=== PATIENT | male | born 1950 | race American Indian/Alaskan Native ===

== ENCOUNTER 2016-06-07 14:43 | Inpatient (IN) | payer MEDICARE, OTHER ==
[2016-06-07] MEDS ORDERED: NACL 0.9% 500 ML 500 ML IV ONE (15:27)
[2016-06-07] MEDS ORDERED: TYLENOL PO ONE ×2 (15:29→19:56)
[2016-06-07 16:12] LABS: Basophils % (Auto) 0.6 % (0.0-1.8); Hematocrit 46.2 % (35.5-45.6); Hemoglobin 15.4 gm/dl (11.8-15.2); Mean Corpuscular HGB Conc 33 % (32-34); Mean Corpuscular Hemoglobin 30 pg (28-32); Mean Corpuscular Volume 90 fl (84-94); Platelet Count 176 K/mm3 (140-440); Red Blood Count 5.13 M/mm3 (3.65-5.03); Red Cell Distribution Width 14.7 % (13.2-15.2); White Blood Count 7.5 K/mm3 (4.5-11.0)
--- NOTE | 2016-06-07 16:30 | XRay Report ---
Single view chest: History: Possible sepsis. Findings: Normal cardiomediastinal silhouette. Trachea is midline. Infiltrate left and right lower lobe suggestive of pneumonitis. Normal CP angles. Impression: Bilateral lower lobe infiltrates. The
[2016-06-07 16:40] LABS: INR 1.11 (0.87-1.13)
[2016-06-07 16:46] LABS: Alanine Aminotransferase 15 units/L (7-56); Albumin/Globulin Ratio 1.1 %; Alkaline Phosphatase 90 units/L (35-129); Anion Gap 19 mmol/L; Bilirubin,Total 0.5 mg/dL (0.1-1.2); Blood Urea Nitrogen 9 mg/dL (9-20); Calcium 9.2 mg/dL (8.4-10.2); Carbon Dioxide 24 mmol/L (22-30); Chloride 96.6 mmol/L (98-107); Glucose 103 mg/dL (75-100); Potassium 4.1 mmol/L (3.6-5.0); Sodium 135 mmol/L (137-145); Total Protein 7.5 g/dL (6.3-8.2)
[2016-06-07 17:24] LABS: Creatine Kinase 106 units/L (55-170)
[2016-06-07 17:27] LABS: Creatine Kinase MB < 1.0 ng/mL (0.0-4.0)
--- NOTE | 2016-06-07 19:55 | Emergency Department Report ---
ED General Adult HPI - General Chief complaint: Chest Pain Stated complaint: CHEST PAIN Time Seen by Provider: 06/07/16 19:50 Source: family Mode of arrival: Wheelchair Limitations: Physical Limitation - History of Present Illness Initial comments: This is a 65-year-old gentleman who presents to the ED initially due to confusion. His stated that he took Unisom pill last night. She indicates is the first time that she can recall that he ever took a Unisom. She states that did help himself sleep more fitfully. He did not wake up until approximately 11 AM today. She indicates that when he awoke he seemed inappropriate. He had difficulty with his speech as well as comprehension. He also had some increased left-sided weakness. He does have chronic left sided weakness from prior stroke. She indicates that it seemed much worse today however. She ultimately comes for him to consent to coming to the ED for evaluation. He did indicate to his life as well as having some substernal chest pain as well. She denies any history of him having any cardiac disease however. Patient was initially triaged. He was noted to be febrile in triage as well. While in triage patient had a syncopal episode. He was immediately brought back to the ED for further evaluation. Upon arriving back in the ED patient had awoken and had no specific complaints but for the same complaints of brought him to the ED in the first place. He states he recalls in the waiting room having a bloody nose and that he did not have any recollection of the syncopal episode or being brought back to the ED. Severity scale (0 -10): 0 Associated Symptoms: cough, fever/chills, syncope. denies: headaches, loss of appetite, malaise, nausea/vomiting, shortness of breath, weakness Treatments Prior to Arrival: none - Related Data Allergies Allergy/AdvReac Type Severity Reaction Status Date / Time No Known Allergies Allergy Unverified 06/07/16 15:19 ED Review of Systems ROS: Stated complaint: CHEST PAIN Other details as noted in HPI Comment: All other systems reviewed and negative Constitutional: denies: chills, fever Eyes: denies: eye pain, eye discharge, vision change ENT: denies: ear pain, throat pain Respiratory: cough. denies: shortness of breath, wheezing Cardiovascular: chest pain. denies: palpitations Endocrine: no symptoms reported Gastrointestinal: denies: abdominal pain, nausea, diarrhea Genitourinary: denies: urgency, dysuria Musculoskeletal: denies: back pain, joint swelling, arthralgia Skin: denies: rash, lesions Neurological: denies: headache, weakness, paresthesias Psychiatric: denies: anxiety, depression Hematological/Lymphatic: denies: easy bleeding, easy bruising ED Past Medical Hx - Past Medical History Hx Hypertension: Yes Hx CVA: Yes Hx Psychiatric Treatment: Yes (SCHIZOPHRENIA) Additional medical history: GLAUCOMA. HIGH CHOLESTEROL - Surgical History Additional Surgical History: HEMORRHOIDECTOMY - Social History Smoking Status: Former Smoker Substance Use Type: None ED Physical Exam - General Limitations: Physical Limitation, Other (speech impediment) General appearance: alert, in no apparent distress - Head Head exam: Present: atraumatic, normocephalic - Eye Eye exam: Present: normal appearance, EOMI. Absent: scleral icterus - ENT ENT exam: Present: normal orophraynx, mucous membranes moist, other (L facial droop. Dried blood on R nares) - Neck Neck exam: Present: normal inspection - Respiratory Respiratory exam: Present: normal lung sounds bilaterally, rales (mild bibasilarly). Absent: respiratory distress - Cardiovascular Cardiovascular Exam: Present: regular rate, normal rhythm. Absent: systolic murmur, diastolic murmur, rubs, gallop - GI/Abdominal GI/Abdominal exam: Present: soft, normal bowel sounds. Absent: tenderness, guarding - Rectal Rectal exam: Present: deferred - Extremities Exam Extremities exam: Present: other (equal distal pedal pulses bilaterally.). Absent: tenderness, pedal edema, calf tenderness - Back Exam Back exam: Present: normal inspection. Absent: tenderness, CVA tenderness (R), CVA tenderness (L) - Neurological Exam Neurological exam: Present: alert, oriented X3, other - Psychiatric Psychiatric exam: Present: normal affect, normal mood - Skin Skin exam: Present: warm, dry, intact, normal color. Absent: rash ED Course Vital Signs 06/07/16 06/07/16 06/07/16 15:08 15:35 19:36 Temperature 101.4 F H Pulse Rate 122 H 90 Respiratory 24 21 18 Rate Blood Pressure 120/78 O2 Sat by Pulse 98 Oximetry 04/03/17 04/03/17 04/03/17 19:40 19:48 19:52 Temperature Pulse Rate 94 H 101 H Respiratory 22 20 15 Rate Blood Pressure 97/59 O2 Sat by Pulse 98 Oximetry 06/07/16 06/07/16 06/07/16 20:25 20:30 20:41 Temperature Pulse Rate 101 H 100 H 103 H Respiratory 20 15 Rate Blood Pressure 106/71 106/71 O2 Sat by Pulse Oximetry 06/07/16 20:52 Temperature Pulse Rate 102 H Respiratory Rate Blood Pressure O2 Sat by Pulse Oximetry - Reevaluation(s) Reevaluation #1: 06/07/16 19:51 ECG in 194 with sinus rhythm at 95 bpm noted to have first-degree block with a IN of 222 ms. Does have right bundle-branch block as well. Right axis is noted. Nonspecific ST segment changes noted. No STEMI. Reevaluation #2: 06/07/16 20:02 Labs done through triage are noted. Chest x-ray is noted as well. It does demonstrate concern for possible pneumonitis versus infantile infiltrate with pneumonia. I suspect the latter given the fever. He specifically does not have a complaint for pain upon my arrival in the room. She denies any chest pain currently. His ECG is nonspecific. Initial troponin done through triage is negative as well. Patient did have blood cultures drawn through triage. His initial lactate is noted as well. It is interesting to me that his repeat lactate improved so significantly without any intervention including IV fluids. Patient was just sitting waiting in my triage time. I will institute antibiotics for probable pneumonia. Patient is noted to be slightly hypotensive here as well. I suspect this is related to his sepsis. There is question of possible alternative etiology given his syncopal episode in the waiting room. He was just sitting down at the time. He has no recollection of it. It is possible it could be cardiac in nature. He is completely resolved from that episode of this time. Does not have complaints. It is also possible to be a vasovagal. He just suffered what he recalls as a nosebleed from the right nares. He indicated that that was the last member he recalled. I will obtain CT brain due to his 's report of him having increased weakness. I also feel this is appropriate given his syncopal episode. Reevaluation #3: 06/07/16 20:35 CT head demonstrates no acute pathology. sequelae of large right MCA territory prior ischemic stroke. As read by the radiologist. ED Medical Decision Making - Lab Data Result diagrams: 06/07/16 15:44 06/07/16 15:44 - Radiology Data Radiology results: report reviewed, image reviewed Bilateral lower lobe infiltrates. Normal cardiac silhouette. Critical care attestation.: If time is entered above; I have spent that time in minutes in the direct care of this critically ill patient, excluding procedure time. ED Disposition Clinical Impression: Severe sepsis Pneumonia Qualifiers: Aspiration pneumonia type: unspecified Laterality: bilateral Lung location: lower lobe of lung Syncope Qualifiers: Syncope type: unspecified Qualified Code(s): R55 - Syncope and collapse Disposition: OP ADMITTED IP TO THIS HOSP Is pt being admited?: No Does the pt Need Aspirin: No Condition: Stable Instructions: Syncope (ED), Bacterial Pneumonia (ED) Referrals: PRIMARY CARE, [Primary Care Provider] - 3-5 Days Time of Disposition: 20:38
[2016-06-07] MEDS ORDERED: XYLOCAINE 1% MPF 5 mL INFILTRATI ONE ×2 (19:56→21:58)
[2016-06-07] MEDS ORDERED: ZITHROMAX 500 MG in NACL 0.9% 250ML 250 ML IV ONE (19:56)
[2016-06-07] MEDS ORDERED: NACL 0.9% 1000 ML 2,000 ML IV ONE (19:56)
[2016-06-07] MEDS ORDERED: ROCEPHIN 1,000 MG in NACL 0.9% 50 ML IV NR (20:00)
--- NOTE | 2016-06-07 20:29 | Cat Scan Report ---
FINAL REPORT EXAM: CT HEAD/BRAIN WO CON HISTORY: syncope TECHNIQUE: CT imaging is acquired through the brain without contrast. Transaxial reformations are provided. PRIORS: None. FINDINGS: Extensive right MCA territory encephalomalacia from prior infarct. Resultant ex vacuo dilatation of the right lateral ventricle. Ventricles and CSF spaces are otherwise mildly proportionately enlarged, consistent with parenchymal atrophy. Scattered deep and subcortical white matter hypodense foci are confluent in some areas and are compatible with microvascular angiopathy. No acute intracranial hemorrhage or mass effect. Calvarium and superficial scalp are intact. Partially visualized paranasal sinuses are clear. Mastoids are clear. IMPRESSION: No acute intracranial abnormality. There are chronic sequela of large right MCA territory infarct as well as atrophy and microvascular angiopathy.
[2016-06-07] MEDS ORDERED: ROCEPHIN/NS 1 GM/50 ML 1 GM/50 ML BAG IV ONE (20:33)
--- NOTE | 2016-06-07 20:45 | Admit Criteria Form ---
Admission Criteria Documentation: SEVERE SEPSIS Clinical Indications for Admission to Inpatient Care (Place 'X' for any and all applicable criteria): Hospital admission is needed for appropriate care of the patient because of ANY ONE of the following: [X]I. Hemodynamic instability indicated by ANY ONE of the following(1)(2)(3)( 4)(5): [X]a. Vital sign abnormality not readily corrected by appropriate treatment within 12 to 24 hours indicated by ANY ONE of the following: [X]i) Tachycardia that persists despite appropriate treatment []ii) Hypotension that persists despite appropriate treatment []iii) Orthostatic vital sign changes that persist despite appropriate treatment [X]b. Vital sign abnormality that is severe indicated by ANY ONE of the following: [X]i. Inadequate perfusion indicated by ANY ONE of the following: [X]1) Lactic acidosis (greater than 2 mmol/L) []2) New abnormal capillary refill (greater than 3 seconds) []3) Reduced urine output []4) New altered mental status []5) Myocardial Ischemia []ii. Mean arterial pressure [A] less than 60 mm Hg []iii. Mean arterial pressure[A] less than 70 mm Hg after 30 minutes of appropriate treatment (eg, fluid resuscitation) []iv. Sustained heart rate greater than 120 beats per minute in adult []v. IV inotropic or vasopressor medication required to maintain adequate blood pressure or perfusion []II. Systemic or infectious condition causing severe symptoms or findings not responsive to emergency or observation care treatment (as appropriate) indicated by ANY ONE of the following: []a. Cardiac arrhythmias of immediate concern(1)(2)(3) []b. Severe endocrine disorder (eg, thyrotoxicosis, adrenal insufficiency)(4)(5) []c. Seizures (eg, new or recurrent)(6) []d. New-onset end organ failure or dysfunction as indicated by ANY ONE of the following: []i. Acute unexplained hypoxemia (eg, not from lung infection or chronic disease)(7)(8)(9) []ii. Acute renal failure as indicated by new onset of ANY ONE of the following(10)(11)(12)(13)(14): []1) 3-fold rise in serum creatinine from baseline []2) Serum creatinine greater than 4 mg/dL (354 micromoles/L) with acute rise greater than 0.5 mg/dL (44.2 micromoles/L) []3) Reduction of more than 75% in estimated glomerular filtration rate from baseline. []4) Estimated glomerular filtration rate less than 35 mL/min/1.73m2 ( 0.59 mL/sec/1.73m2) in child younger than 18 years. []5) Cessation of urine output indicated by ALL of the following: []A. Adequate volume status []B. Inadequate urine output as indicated by ANY ONE of the following: []a. Urine output less than 0.3 mL/kg/hr for 24 hours []b. Anuria (urine output less than 0.1 mL/kg/hr) for 12 hours []iii. Acute mental status changes(15) []iv. Acute hepatic failure (eg, plasma bilirubin greater than 4 mg/ dL (68 micromoles/L), new INR greater than 2.0)(16)(17) []e. Unmanageable nausea and vomiting(18) []f. New-onset or uncontrolled central diabetes insipidus(19)(20) []g. Clinically significant dehydration(18)(21) []h. Hypoglycemia(22) []i. Acidosis (pH less than 7.35) or alkalosis (pH greater than 7.45)( 22)(23) []j. Toxic drug level that indicates need for specific monitoring or treatment(24)(25) []k. Severe electrolyte abnormalities indicated by ALL of the following( 1)(2)(3): []i. Electrolytes and associated findings are not as expected for patient baseline or acceptable treatment effects. []ii. Severe abnormalities indicated by ANY ONE of the following: []1) Sodium less than 130 mEq/L (mmol/L) (new) []2) Sodium less than 135 mEq/L (mmol/L) with ANY ONE of the following: []A. Uncorrectable (to near normal or chronic baseline) after trial of outpatient and emergency treatment []B. Altered mental status []C. Seizures []D. Severe medical etiology requiring inpatient management (eg , heart failure, hypovolemia) []3) Sodium greater than 155 mEq/L (mmol/L) []4) Sodium greater than 150 mEq/L (mmol/L) with ANY ONE of the following: []A. Uncorrectable (to near normal or chronic baseline) with outpatient and emergency treatment []B. Altered mental status []C. Seizures []D. Severe medical etiology (eg, hypovolemia, diabetes insipidus) []5) Potassium less than 2.5 mEq/L (mmol/L) despite outpatient and emergency treatment []6) Potassium less than 3 mEq/L (mmol/L) with ANY ONE of the following : []A. Weakness []B. Cardiac abnormality (eg, arrhythmia, conduction disturbance ) []C. Cardiac ischemia []D. Ileus []E. Ongoing medical cause requiring inpatient management (eg, acute renal wasting or SIADH) []F. Other severe symptoms []7) Potassium greater than 6.5 mEq/L (mmol/L) []8) Potassium greater than 5 mEq/L (mmol/L) with ANY ONE of the following: []A. Uncorrectable (to near normal or chronic baseline) with outpatient and emergency treatment []B. Severe ECG findings[A] []C. Acute worsening of renal failure (creatinine greater than 2.5 mg/dL (221 micromoles/L) or significant elevation for age and size) []D. Severe weakness []E. Severe medical etiology (eg, hemolysis, infection, drug overdose) []9) Calcium less than 7 mg/dL (1.75 mmol/L) despite outpatient and emergency treatment(5) []10) Calcium less than 8 mg/dL (2 mmol/L) with significant symptoms or findings (eg, altered mental status, muscle spasms, seizures, breathing difficulty, cardiac abnormality (eg, arrhythmia or conduction disturbance))(5) []11) Calcium greater than 14 mg/dL (3.5 mmol/L)(5) []12) Calcium greater than 12 mg/dL (3 mmol/L) with ANY ONE of the following(5): []A. Uncorrectable (to near normal or chronic baseline) with outpatient and emergency treatment []B. Significant dehydration or hypovolemia as indicated by ALL of the following(3)(6)(7): []a. Not resolved with initial treatments []b. Clinically significant dehydration as indicated by ANY ONE of the following: [](1) Vomiting refractory to outpatient treatment (ie, precluding oral rehydration) [](2) Inability to drink [](3) Hypernatremia or other electrolyte abnormality unable to be corrected with outpatient and emergency treatment [](4) Failure to remain hydrated with outpatient therapy [](5) Reduced urine output [](6) Hypotension [](7) Serious cause for dehydration requiring acute hospitalization ( eg, bowel obstruction, increased intracranial pressure, infectious cause) [](8) Child with ANY ONE of the following(8): [](i) Severe abdominal tenderness [](ii) Adequate care not available at home [](iii) Severe dehydration (greater than 9% loss of body weight) []C. Significant symptoms or findings (eg, altered mental status , cardiac abnormality (eg, arrhythmia, conduction disturbance), malignant etiology requiring inpatient treatment) []13) Phosphorus less than 1 mg/dL (0.32 mmol/L) []14) Phosphorus less than 1.5 mg/dL (0.48 mmol/L) with ANY ONE of the following: []A. Patient unresponsive to outpatient and emergency treatment []B. Significant symptoms or findings (eg, weakness, altered mental status, breathing difficulty, seizures, rhabdomyolysis) []15) Phosphorus greater than 10 mg/dL (3.2 mmol/L) []16) Phosphorus greater than 4.5 mg/dL (1.45 mmol/L) (new) with ANY ONE of the following: []A. Severe medical etiology (eg, crush injury, acute renal failure) []B. Associated hypocalcemia with significant findings (eg, neurologic symptoms, altered mental status, muscle spasms, seizures, breathing difficulty, cardiac abnormality (eg, arrhythmia, conduction disturbance)) []16) Magnesium less than 1 mg/dL (0.41 mmol/L) []17) Magnesium less than 1.5 mg/dL (0.62 mmol/L) with ANY ONE of the following: []A. Patient unresponsive to outpatient and emergency treatment []B. Associated hypocalcemia with significant findings (eg, altered mental status, muscle spasms, seizures, breathing difficulty, cardiac abnormality (eg, arrhythmia, conduction disturbance)) []C. Associated hypokalemia (potassium less than 3 mEq/L (mmol/L )) with risk of arrhythmia []18) Magnesium greater than 4 mEq/L (2 mmol/L) []19) Magnesium greater than 2.5 mEq/L (1.25 mmol/L) with significant symptoms or findings (eg, weakness, altered mental status, cardiac abnormality (eg, arrhythmia, conduction disturbance), breathing difficulty, severe medical etiology (eg, renal failure, hypovolemia)) []20) Uric acid greater than 20 mg/dL (1190 micromoles/L)(9) []21) Uric acid greater than 8 mg/dL (476 micromoles/L) with significant symptoms or findings of tumor lysis syndrome (eg, creatinine greater than 1.5 times upper limit of normal, cardiac abnormality (eg , arrhythmia, conduction disturbance), seizure)(9) []III. High fever or other high-risk infection situation as indicated by ANY ONE of the following(26)(27)(28): []a. Outpatient and observation care antimicrobial treatment unavailable, not effective, or not appropriate []b. Documented bacteremia []c. Temperature greater than 104.9 degrees F (40.5 degrees C) (oral) []d. Temperature greater than 103.1 degrees F (39.5 degrees C) (oral) or less than 96.8 degrees F (36 degrees C) (rectal) that does not respond to emergency treatment and observation care []IV. High-risk febrile neutropenia[A] as indicated by ANY ONE of the following(29)(30)(31)(32): []a. Profound neutropenia[B] anticipated to extend for more than 7 days []b. Hemodynamic instability []c. Hypoxemia []d. Tachypnea []e. Altered mental status []f. New-onset abdominal pain []g. New-onset vomiting or diarrhea []h. Oral or gastrointestinal mucositis that interferes with swallowing or causes severe diarrhea []i. Focal infection (eg, cellulitis, pneumonia, central line or catheter infection, perirectal abscess) []j. Renal insufficiency (eg, GFR of less than 30 mL/min/1.73m2 (0.5 mL/sec /1.73m2)). []k. Severe liver dysfunction (transaminase levels greater than 5 times normal) []l. Platelet count less than 50,000/mm3 (50 x109/L)(33) []m. Leukemia or lymphoma induction therapy []n. Leukemia not in complete remission or with evidence of disease progression []o. Bone marrow transplant patient []p. Alemtuzumab being used for therapy []q. [employer] Association for Supportive Care in Cancer (MASCC) Risk Index score of less than 21[C](33)(35). []V. Isolation required (eg, tuberculosis that requires isolation, Ebola infection)[D](36)(37)(38)(39)(40) []. Gangrene that requires treatment beyond emergency or observation level care(41)(42) []VII. Antitoxin administration and ongoing observation required (eg, tetanus, botulism)(43)(44) []. Suspected infection with rapid progression or severe symptoms as indicated by ANY ONE of the following(45): []a. Streptococcal or staphylococcal toxic shock(46) []b. Diphtheria(47) []c. Hantavirus(48) []d. Severe acute respiratory syndrome(8)(49) []e. Anthrax(50) []f. Ebola[D](36)(37)(38) []g. Necrotizing soft tissue infection(41)(42) []h. Plague(50) []i. Other suspected infection that requires care beyond emergency or observation level care []VII. Severe adverse drug or systemic toxin reaction as indicated by ANY ONE of the following(24): []a. Serotonin syndrome(51)(52) []b. Neuroleptic malignant syndrome(51)(52) []c. Cholinergic syndrome with severe symptoms (eg, bronchorrhea, weakness , mental status changes, seizures)(53) []d. Anticholinergic syndrome []e. Sympathetic syndrome with severe symptoms (eg, seizures, mental status changes, cardiac dysrhythmias) []f. Other severe adverse drug or systemic toxin reaction that remains after emergency or observation level care (as appropriate) []VIII. Allergic reaction with severe symptoms (not responsive to emergency or observation care treatment as appropriate), including ANY ONE of the following(54): []a. Airway edema (pharyngeal, epiglottic, or laryngeal edema) []b. Stridor []c. Respiratory failure []d. Bronchospasm []e. Hypotension []IX. Environmental emergency (not responsive to emergency or observation care treatment as appropriate) as indicated by ANY ONE of the following(55)(56): []a. Hyperthermia []b. Heat stroke []c. Heat exhaustion []d. Hypothermia (temperature less than 95 degrees F (35 degrees C) rectal) (57) []e. Electrocution(58) []X. Complications of transplanted organ (ie, not covered elsewhere)[E] indicated by ANY ONE of the following(59): []a. Acute graft rejection (or graft vs. host disease)[F] requiring inpatient management (eg, intravenous immunosuppression)(60)(61)(62)( 63) []b. Acute failure of transplanted organ necessitating inpatient care (eg, cannot be managed in other setting) []c. Infection requiring inpatient management (eg, Hemodynamic instability, need for intravenous antimicrobial treatment)(64)(65) []d. Other complication of transplanted organ requiring inpatient management []XI. Systemic or Infectious Condition condition, symptom, or finding for which emergency and observation care have failed or are not considered appropriate. See General Criteria: Observation Care, General Admission Criteria or Pediatric General Admission Criteria guideline as appropriate. (Contents from SEVERE SEPSIS and SYSTEMIC OR INFECTIOUS CONDITION clinical indications for admission to inpatient care have been integrated in this form) The original [facility] content created by [facility] has been revised. The portions of the content which have been revised are identified through the use of italic text or in bold and [facility] has neither reviewed nor approved the modified material. All other unmodified content is copyright [facility]. Please see references footnoted in the original [facility] edition 2016 Admission Criteria Met: Yes
[2016-06-07 21:55] LABS: Bilirubin,Urine NEG (Negative); Blood,Urine NEG (Negative); Ketones,Urine TR mg/dL (Negative); Leukocyte Esterase,Urine TR (Negative); Mucus,Urine 3+ /HPF; Nitrite,Urine NEG (Negative)
[2016-06-07] MEDS ORDERED: TYLENOL PO PRN (22:00)
[2016-06-07] MEDS ORDERED: ZOFRAN IV PRN (22:02)
[2016-06-08 01:53] LABS: Creatine Kinase MB 1.5 ng/mL (0.0-4.0)
[2016-06-08 01:54] LABS: Creatine Kinase 212 units/L (55-170)
[2016-06-08 07:35] LABS: Creatine Kinase MB 1.5 ng/mL (0.0-4.0)
[2016-06-08 07:37] LABS: Creatine Kinase 199 units/L (55-170)
--- NOTE | 2016-06-08 07:59 | History and Physical Report ---
CHIEF COMPLAINT: Altered mental status and Chest discomfort. HISTORY OF PRESENTING ILLNESS: The patient is a 65-year-old male who presented to the Emergency Room with a change in mental status. Initially, the stated that patient took Unisom pill last night, which was the first time. The recollected that the patient has never had Unisom to help him sleep and the patient did not wake up until late morning around 11:00 a.m. so when he woke up, he became confused and had difficulty with speech as well as comprehension. The patient has left-sided weakness from previous stroke. The said the left-sided weakness became more pronounced and the insisted that the patient will come to the Emergency Room for evaluation. Also the patient complained of some chest discomfort and there was no history of nausea or vomiting. No history of shortness of breath or diaphoresis. The patient also said he had some nosebleed while in the waiting room and had a syncopal episode while in the hospital. PAST MEDICAL HISTORY: Pertinent for hypertension, cerebrovascular accident with left-sided weakness, schizophrenia, glaucoma, high cholesterol. PAST SURGICAL HISTORY: Pertinent for hemorrhoidectomy. FAMILY HISTORY: Noncontributory. SOCIAL HISTORY: The patient used to smoke before, but does not smoke anymore. Lives with family. Does not drink alcohol or use illicit drugs. MEDICATIONS: The patient's home medications are not known. ALLERGIES: There are no known drug allergies. REVIEW OF SYSTEMS: CONSTITUTIONAL: No fever, no chills, no diaphoresis. HEENT: There is no headache. No sore throat. CARDIOVASCULAR SYSTEM: There is chest pain with no orthopnea. RESPIRATORY SYSTEM: There is no shortness of breath or cough. GASTROINTESTINAL SYSTEM: There is no nausea. No vomiting. No abdominal pain, diarrhea, or constipation. NEUROLOGICAL SYSTEM: Syncopal episode noted. There is confusion. MUSCULOSKELETAL SYSTEM: There is no joint pain or swelling. DERMATOLOGICAL SYSTEM: There is no skin rash or itching. GENITOURINARY SYSTEM: There is no dysuria, hematuria or flank pain. Rest of the system review is normal. PHYSICAL EXAMINATION: GENERAL: At the time of exam, the patient was found to be alert and oriented x 3 and not in acute distress. VITAL SIGNS: Shows normal temperature with pulse of 100, respirations 22, blood pressure 109/75 with MAP of 86, O2 sat not recorded. HEENT: Showed pupils to be equal, round, reactive to light and accommodation. Extraocular muscles intact. NECK: Supple with no JVD or carotid bruit. CARDIOVASCULAR SYSTEM: Show first and second heart sounds with no gallops or murmur. RESPIRATORY SYSTEM: Show good air entry on both sides of the lung with bibasilar crackles. GASTROINTESTINAL SYSTEM: Show abdomen to be full, soft, nontender with no organomegaly or rigidity. NEUROLOGIC: Exam showed no focal deficit. MUSCULOSKELETAL SYSTEM: Show no joint swelling or tenderness. DERMATOLOGICAL SYSTEM: Show no skin rash. GENITOURINARY SYSTEM: Showing no costovertebral angle tenderness. PERTINENT LABORATORY AND IMAGING STUDIES: The patient had CBC done with normal white count, elevated hemoglobin and elevated hematocrit of 46.2 with normal MCV. CBC differential shows high value of 87.5% with no significant bands. Chemistry shows slightly low sodium of 135 and slightly low chloride of 96.6. The patient's first lactic acid level was high with a value of 2.6, but a repeat lactic acid came back normal at level of 1.7. The patient's imaging studies showed bilateral infiltrate in the lower lung field. DIAGNOSES: 1. Pneumonia. 2. Syncope. PLAN: The patient will be admitted to the medical floor for pneumonia and will be on IV Rocephin 1 gram daily and IV Zithromax 500 mg daily. DVT prophylaxis will be through sequential compressive device. The patient will have cardiac enzymes checked q6h x2 and will be on p.o. Tylenol 650 mg every 6 hours for headache and will be on IV Zofran 4 mg q.8h. for nausea and vomiting. The patient's home medication will be reconciled and started and the patient will be on oxygen via nasal cannula 2 liters per minute. JOB# [id number] OCN/PRABHA BACK
[2016-06-08] MEDS ORDERED: ROCEPHIN IV SCH (10:00)
[2016-06-08] MEDS: ROCEPHIN/NS 1 GM/50 ML 1 GM/50 ML BAG IV SCH (10:56)
[2016-06-08] MEDS ORDERED: PNEUMOVAX 23 IM ONE (12:00)
[2016-06-08] MEDS ORDERED: FLUARIX QUAD 2016-2017(36 MOS+) IM ONE (12:00)
[2016-06-08] MEDS ORDERED: ROBITUSSIN AC PO PRN (12:15)
--- NOTE | 2016-06-08 18:26 | Progress Note ---
Assessment and Plan Assessment and plan: Patient is a 65-year-old male with a history of prior CVA with residual left- sided weakness will present to the hospital following altered sensorium and affect taken Unisom by mouth last night for sleep. states that she gave him this is a patient has been unable to sleep for weeks. Also sometimes talks continuously and sometimes incoherently. * Acute metabolic encephalopathy likely secondary to medication * TIA * Left-sided hemiparesis * Bilateral pneumonia rule out gram-negative possible aspiration pneumonitis * Sepsis Plan: * Continue supportive care, obtain MRI of the brain, carotid ultrasounds * Continue antibiotics repeat lactic acid is normal * he passed bedside swallow eval will start on diet * Cultures are negative at this point. * DVT and GI prophylaxis * 1. Discussed in detail with family and they are agreeable with the treatment plan. . History Interval history: Patient seen and examined this morning acute distress spouse in the room with the patient. She provides most of information the patient has a residual left- sided weakness from previous stroke. Although he shows much improvement is not quite at his baseline. He denies any chest pain, nausea, vomiting, diarrhea. . Hospitalist Physical - Physical exam Narrative exam: VITAL SIGNS: Reviewed. GENERAL: The patient appeared well nourished and normally developed. Vital signs as documented. HEAD: No signs of head trauma. EYES: Pupils are equal. Extraocular motions intact. EARS: Hearing grossly intact. MOUTH: Oropharynx is normal. NECK: No adenopathy, no JVD. CHEST: Chest with clear breath sounds bilaterally. No wheezes, rales, or rhonchi. CARDIAC: Regular rate and rhythm. S1 and S2, without murmurs, gallops, or rubs. VASCULAR: No Edema. Peripheral pulses normal and equal in all extremities. ABDOMEN: Soft, without detectable tenderness. No sign of distention. No rebound or guarding, and no masses palpated. Bowel Sounds normal. MUSCULOSKELETAL: Good range of motion of all major joints. Extremities without clubbing, cyanosis or edema. NEUROLOGIC EXAM: Alert and oriented x [address] Left-sided weakness. Speech normal. Follows commands. PSYCHIATRIC: Mood normal. SKIN: No rash or lesions. - Constitutional Vitals: Temp Pulse Resp BP Pulse Ox 100.7 F H 83 20 133/83 96 06/08/16 08:00 06/08/16 08:00 06/08/16 08:00 06/08/16 08:00 06/08/16 08:00 Results - Labs CBC & Chem 7: 06/07/16 15:44 06/07/16 15:44 Labs: Laboratory Last Values WBC 7.5 K/mm3 (4.5-11.0) 06/07/16 15:44 RBC 5.13 M/mm3 (3.65-5.03) H 06/07/16 15:44 Hgb 15.4 gm/dl (11.8-15.2) H 06/07/16 15:44 Hct 46.2 % (35.5-45.6) H 06/07/16 15:44 MCV 90 fl (84-94) 06/07/16 15:44 MCH 30 pg (28-32) 06/07/16 15:44 MCHC 33 % (32-34) 06/07/16 15:44 RDW 14.7 % (13.2-15.2) 06/07/16 15:44 Plt Count 176 K/mm3 (140-440) 06/07/16 15:44 Lymph % (Auto) 5.1 % (13.4-35.0) L 06/07/16 15:44 [place] % (Auto) 6.8 % (0.0-7.3) 06/07/16 15:44 Eos % (Auto) 0.0 % (0.0-4.3) 06/07/16 15:44 Baso % (Auto) 0.6 % (0.0-1.8) 06/07/16 15:44 Lymph # 0.4 K/mm3 (1.2-5.4) L 06/07/16 15:44 [place] # 0.5 K/mm3 (0.0-0.8) 06/07/16 15:44 Eos # 0.0 K/mm3 (0.0-0.4) 06/07/16 15:44 Baso # 0.0 K/mm3 (0.0-0.1) 06/07/16 15:44 Seg Neutrophils % 87.5 % (40.0-70.0) H 06/07/16 15:44 Seg Neutrophils # 6.6 K/mm3 (1.8-7.7) 06/07/16 15:44 PT 14.2 Sec. (12.2-14.9) 06/07/16 15:44 INR 1.11 (0.87-1.13) 06/07/16 15:44 VBG pH 7.376 (7.320-7.420) 06/07/16 15:44 Sodium 135 mmol/L (137-145) L 06/07/16 15:44 Potassium 4.1 mmol/L (3.6-5.0) 06/07/16 15:44 Chloride 96.6 mmol/L (98-107) L 06/07/16 15:44 Carbon Dioxide 24 mmol/L (22-30) 06/07/16 15:44 Anion Gap 19 mmol/L 06/07/16 15:44 BUN 9 mg/dL (9-20) 06/07/16 15:44 Creatinine 1.2 mg/dL (0.8-1.5) 06/07/16 15:44 Estimated GFR > 60 ml/min 06/07/16 15:44 BUN/Creatinine Ratio 7.50 % 06/07/16 15:44 Glucose 103 mg/dL (75-100) H 06/07/16 15:44 POC Glucose 140 (70-105) H 06/07/16 19:39 Lactic Acid 1.7 mmol/L (0.7-2.0) 06/07/16 18:23 Calcium 9.2 mg/dL (8.4-10.2) 06/07/16 15:44 Total Bilirubin 0.5 mg/dL (0.1-1.2) 06/07/16 15:44 AST 15 units/L (5-40) 06/07/16 15:44 ALT 15 units/L (7-56) 06/07/16 15:44 Alkaline Phosphatase 90 units/L (35-129) 06/07/16 15:44 Total Creatine Kinase 199 units/L (55-170) H 06/08/16 05:00 CK-MB (CK-2) 1.5 ng/mL (0.0-4.0) 06/08/16 00:59 CK-MB (CK-2) Rel Index 0.7 (0-4) 06/08/16 05:00 Troponin T < 0.010 ng/mL (0.00-0.029) 06/08/16 05:00 Total Protein 7.5 g/dL (6.3-8.2) 06/07/16 15:44 Albumin 4.0 g/dL (3.9-5) 06/07/16 15:44 Albumin/Globulin Ratio 1.1 % 06/07/16 15:44 Urine Color Yellow (Yellow) 06/07/16 21:14 Urine Turbidity Clear (Clear) 06/07/16 21:14 Urine pH 5.0 (5.0-7.0) 06/07/16 21:14 Ur Specific [place] 1.024 (1.003-1.030) 06/07/16 21:14 Urine Protein 30 mg/dl mg/dL (Negative) 06/07/16 21:14 Urine Glucose (UA) Neg mg/dL (Negative) 06/07/16 21:14 Urine Ketones Tr mg/dL (Negative) 06/07/16 21:14 Urine Blood Neg (Negative) 06/07/16 21:14 Urine Nitrite Neg (Negative) 06/07/16 21:14 Urine Bilirubin Neg (Negative) 06/07/16 21:14 Urine Urobilinogen 2.0 mg/dL (<2.0) 06/07/16 21:14 Ur Leukocyte Esterase Tr (Negative) 06/07/16 21:14 Urine WBC (Auto) 2.0 /HPF (0.0-6.0) 06/07/16 21:14 Urine RBC (Auto) 4.0 /HPF (0.0-6.0) 06/07/16 21:14 U Epithel Cells (Auto) 1.0 /HPF (0-13.0) 06/07/16 21:14 Hyaline Casts 2 /LPF 06/07/16 21:14 Urine Mucus 3+ /HPF 06/07/16 21:14 - Imaging and Cardiology Chest x-ray: image reviewed (bilateral pneumonia) CT Scan - head: image reviewed (negative)
[2016-06-09] MEDS: ROCEPHIN/NS 1 GM/50 ML 1 GM/50 ML BAG IV SCH (09:44)
[2016-06-09 09:56] VITALS: BP 119/90
[2016-06-09] MEDS ORDERED: HCTZ PO SCH (13:00)
--- NOTE | 2016-06-09 13:18 | Magnetic Resonance Report ---
MRI of the brain without contrast. History: TIA. Procedure: Routine brain protocol without contrast. Findings: There is no evidence of restricted diffusion. A large encephalomalacia/chronic infarct is seen in the right MCA territory similar to the previous areas of hypodensity on cranial CT performed on June 07. There is associated ventriculomegaly ex vacuo of the right lateral ventricle. The remainder of the ventricular system is unremarkable. There are no masses or extra-axial collections. There are areas of hyperintense T2 and flair signal in periventricular white matter. The pituitary gland is normal. There is evidence of chronic ethmoid sinusitis. Impression: No acute findings. A large chronic right MCA territory infarct and chronic periventricular microangiopathic ischemic changes are present.
--- NOTE | 2016-06-09 17:16 | Discharge Summary ---
Providers - Providers Date of Admission: 06/07/16 20:39 Date of discharge: 06/09/16 Attending physician: AUSTIN NUÑEZ MD 06/08/16 12:53 Occupational Therapy Evaluate and Treat [CONS] Routine Comment: Reason For Exam: tia Physical Therapy Evaluation and Treat [CONS] Routine Comment: Reason For Exam: tia 06/09/16 07:25 Physical Therapy Evaluation and Treat [CONS] Routine Comment: Needs strengthening for return home Reason For Exam: Inability to walk, has history of prior stroke Mode of Transport?: Cane Weight bearing status?: Full wt bearing Assistive devices?: Yes: Quad Cane Primary care physician: HAND STRIPER Hospitalization Reason for admission: AMS Condition: Stable Hospital course: Patient is a 65-year-old male with a history of prior CVA with residual left- sided weakness will present to the hospital following altered sensorium and affect taken Unisom by mouth last night for sleep. states that she gave him this is a patient has been unable to sleep for weeks. Also sometimes talks continuously and sometimes incoherently. Patient symptoms improved, imaging study did not show any new stroke. All this was discussed with family and they are aware. Patient stable for surgery at this time. I have discussed the family to be careful about medications being given him for sleep. family reports that PCP and previous neurologist recommended against ASA and statin. I HAVE ADVISED THAT THEY REVISIT THIS TO FIND OUT WHY. Will complete antibiotics for pneumonia. NO TIA. * Acute metabolic encephalopathy likely secondary to medication * Left-sided hemiparesis * Bilateral pneumonia rule out gram-negative possible aspiration pneumonitis * Sepsis Disposition: DISCHARGED TO HOME OR SELFCARE Time spent for discharge: 35 MINS Core Measure Documentation - Palliative Care Palliative Care/ Comfort Measures: Not Applicable - Core Measures Any of the following diagnoses?: none - VTE Discharge Requirements Deep Vein Thrombosis/Pulmonary Embolism Present on Admission: No Exam - Physical Exam Narrative exam: VITAL SIGNS: Reviewed. GENERAL: The patient appeared well nourished and normally developed. Vital signs as documented. HEAD: No signs of head trauma. EYES: Pupils are equal. Extraocular motions intact. EARS: Hearing grossly intact. MOUTH: Oropharynx is normal. NECK: No adenopathy, no JVD. CHEST: Chest with clear breath sounds bilaterally. No wheezes, rales, or rhonchi. CARDIAC: Regular rate and rhythm. S1 and S2, without murmurs, gallops, or rubs. VASCULAR: No Edema. Peripheral pulses normal and equal in all extremities. ABDOMEN: Soft, without detectable tenderness. No sign of distention. No rebound or guarding, and no masses palpated. Bowel Sounds normal. MUSCULOSKELETAL: Good range of motion of all major joints. Extremities without clubbing, cyanosis or edema. NEUROLOGIC EXAM: Alert and oriented x [address] Left-sided weakness. Speech normal. Follows commands. PSYCHIATRIC: Mood normal. SKIN: No rash or lesions. - Constitutional Vitals: Temp Pulse Resp BP Pulse Ox 97.9 F 80 18 119/90 94 06/09/16 08:00 06/09/16 08:00 06/09/16 08:00 06/09/16 08:00 06/09/16 08:00 Plan Activity: advance as tolerated, fall precautions Diet: low fat Special Instructions: record daily BP diary Additional Instructions: follow with primary neurologist. continue home medications. Follow up with: PRIMARY CARE, [Primary Care Provider] - 3-5 Days Prescriptions: Levofloxacin [Levaquin TAB] 500 mg PO QDAY #7 tablet
== END 2016-06-09 19:05 | disposition home or self-care (01) | DRG 871 ==
LOC: ED 14:43 → 4A 20:39 → CC2 22:47
PROVIDERS: ADMIT Internal Medicine; ATTEND Internal Medicine
PROC: 3E0234Z Introduction of Serum, Toxoid and Vaccine into Muscle, Percutaneous Approach (ICD-10-PCS; principal; 2016-06-08)
DX: A41.9 Sepsis, unspecified organism (principal); J69.0 Pneumonitis due to inhalation of food and vomit; G93.41 Metabolic encephalopathy; I69.354 Hemiplegia and hemiparesis following cerebral infarction affecting left non-dominant side; I10 Essential (primary) hypertension; R65.20 Severe sepsis without septic shock; F20.9 Schizophrenia, unspecified; H40.9 Unspecified glaucoma; R55 Syncope and collapse; Z87.891 Personal history of nicotine dependence; Z23 Encounter for immunization; T45.0X5A Adverse effect of antiallergic and antiemetic drugs, initial encounter
CPT/HCPCS: 36415; 70450; 70551; 71010; 80053; 81001; 82140; 82550; 82553; 82805; 82962; 84484; 85025; 85610; 87040; 87086; 90686; 90732; 93005; 93010; 96374; 96375; J0456; J0696; J7030; J7050